=== PATIENT | male | born 1960 | race Caucasian/White ===

== ENCOUNTER 2016-10-13 21:12 | Emergency (ER) | payer OTHER ==
--- NOTE | ~2016-10-13 | HP ---
History And Physical [address] [address] [place]. [address] NAME: GUERITA ZAPATA : 62 STATUS : [facility]#: [id number] AGE: 55 ADM/REG DATE : 10/13/16 MR#: [id number] REPORT SERV DATE: 10/14/16 DICTATED BY: JOHN SEGUNDO DATE: 10/14/16 REPORT STATUS : Draft TRANSCRIBED BY: DEDE DATE: 10/14/16 DATE OF ADMISSION: 10/13/2016 CHIEF COMPLAINT: A 55-year-old male, presenting with near syncope, heavy diaphoresis, and nausea. HISTORY OF PRESENTING ILLNESS: The patient's history was obtained through careful interview with the patient, coupled with review of [facility] and [facility] medical records. The patient was in usual state of health when he had a very stressful [employer] meeting. He is the community mental health associate for [employer] and apparently has been undergoing some legal stressful issues in meeting with families. Suddenly while he was in the midst of this feeling quite strained, he states "the whole room went blurry." His symptoms included near syncope, lightheadedness, and diaphoresis that was drenching. He had to lay down on a couch to prevent himself from passing out. He developed nausea and one episode of vomiting. He tried to take a nitroglycerin, but vomited it back up. He describes only a "tad bit" of chest discomfort, aching quality, 2/10 severity associated with nausea that quickly subsided. He admits that prior to this episode today, he had a poor appetite, but otherwise had no significant symptoms. In the midst of these symptoms and feeling lightheaded, he did develop slight slurring of his speech and was incoherent for a bit. The patient has coronary artery disease and two stents placed in 2014. Afterwards, he lost about 75 pounds both intentionally by modifying his diet as well as unintentionally just from feeling ill, but his weight has stabilized in the last about six to eight months. REVIEW OF SYSTEMS: Otherwise, a 14-point review of systems was obtained and was negative. PAST MEDICAL HISTORY: 1. Coronary artery disease, status post stent placement x2 in 2014, followed by Dr. Avelar with a negative echocardiogram at that time. 2. Obstructive sleep apnea, on CPAP. 3. Elevated cholesterol. 4. Multiple episodes of syncope in 2015 after his myocardial infarction. PAST SURGICAL HISTORY: 1. Knee surgery. 2. Left arm surgery. ALLERGIES: SUCCINYLCHOLINE. History And Physical [address] [place]. [address] NAME: GUERITA ZAPATA : 62 STATUS : [facility] PAT#: [id number] AGE: 55 ADM/REG DATE : 10/13/16 MR#: [id number] REPORT SERV DATE: 10/14/16 DICTATED BY: JOHN SEGUNDO DATE: 10/14/16 REPORT STATUS : Draft TRANSCRIBED BY: DEDE DATE: 10/14/16 SOCIAL HISTORY: No tobacco abuse. Quit alcohol. Lives in [place], [place]. Is . Son is an [place] Machine [employer]ist. He works for [employer]. FAMILY HISTORY: He is an only child. Both of his parents of "old age." He cannot identify any particular family pattern of disease. CURRENT MEDICATIONS: Include aspirin 81 mg daily p.o. daily, Lipitor 40 mg p.o. daily, lisinopril 5 mg p.o. daily, nitroglycerin p.r.n., Brilinta 60 mg p.o. b.i.d. PHYSICAL EXAMINATION: VITAL SIGNS: Temperature 98.2, pulse 50, blood pressure 122/71, respiratory rate 16, O2 saturation 100% on room air. GENERAL: A pleasant, cooperative male, in no evidence of acute distress. HEENT: Pupils equal, round, and reactive to light. No conjunctival pallor. No scleral icterus. Nares are patent. Oropharynx is clear of obstruction. Moist mucous membranes. NECK: Trachea midline. No thyromegaly. LYMPH: No cervical lymphadenopathy. No supraclavicular lymphadenopathy. RESPIRATORY: Clear to auscultation at bases. No wheezes, rales, or rhonchi. Normal respiratory effort. CARDIOVASCULAR: Bradycardic, regular rhythm. No murmurs, rubs, or gallops. No current extremity edema is appreciated. ABDOMEN: Soft, nontender, nondistended. Normal bowel sounds auscultated throughout. No hepatosplenomegaly. DERMATOLOGICAL: Warm and dry extremities. No pallor, no cyanosis. PSYCHIATRIC: Normal affect. Good mood. Alert and oriented x3. LABORATORY DATA: White blood cell count 10.9, hemoglobin 14, hematocrit 40, platelets 215. Sodium 141, potassium 3.2, chloride 108, bicarb 22, BUN 13, creatinine 0.9. Glucose 117. INR 1.0. Troponin negative. STUDIES: 1. Chest x-ray by my own evaluation shows no acute cardiopulmonary process. 2. EKG by my own evaluation shows sinus bradycardia, inferior Q-waves. ASSESSMENT AND PLAN: 1. Near syncope. History sounds like a cardiac event such as an arrhythmia. We will check orthostatics. Check echocardiogram. Obtain a Cardiology consult. 2. Bradycardia, but no medications that are to blame or suspicious for causing this. Cardiology is aware of the case. It was reviewed by Dr. Menon in the emergency department. We will consult Dr. Avelar. Question whether the patient should empirically have a pacemaker? 3. Hypokalemia. Replace potassium. Check magnesium. 4. Coronary artery disease, history of stents x2. Follow troponin. Continue aspirin and Brilinta. History And Physical [address] [address] NAME: GUERITA ZAPATA : 62 STATUS : [facility] PAT#: [id number] AGE: 55 ADM/REG DATE : 10/13/16 MR#: [id number] REPORT SERV DATE: 10/14/16 DICTATED BY: JOHN SEGUNDO DATE: 10/14/16 REPORT STATUS : Draft TRANSCRIBED BY: DEDE DATE: 10/14/16 KPMitchell/DEDE John Segundo M.D. / [id number] CC: Piero Sims Jr., M.D. David Sapp, M.D.
[2016-10-13 20:13] LABS: BASOPHILS 0.4 %; BASOPHILS ABSOLUTE 0.04 10/3/uL (0.0-0.16); EOSINOPHILS 3.4 %; EOSINOPHILS ABSOLUTE 0.37 10/3/uL (0.0-0.53); HEMATOCRIT 40.1 % (40.0-51.0); HEMOGLOBIN 14.1 g/dL (13.6-17.8); IMMATURE GRANULOCYTES 0.4 %; IMMATURE GRANULOCYTES ABSOLUTE 0.04 10/3/uL (0.0-0.11); LYMPHOCYTES 23.9 %; LYMPHOCYTES ABSOLUTE 2.61 10/3/uL (0.67-4.30); MEAN CORPUS HGB CONC 35.2 g/dL (32.0-36.0); MEAN CORPUSCULAR HEMOGLOB 31.3 pg (26.0-34.0); MEAN PLATELET VOLUME 9.9 fL (9.2-13.0); MONOCYTES 8.1 %; MONOCYTES ABSOLUTE 0.89 10/3/uL (0.21-1.20); NEUTROPHILS 63.8 %; NEUTROPHILS ABSOLUTE 6.98 10/3/uL (2.02-8.40); PLATELET COUNT 215 10/3/uL (150-400); RBC DISTRIBUTION WIDTH 13.3 % (12.0-16.0); WHITE BLOOD CELLS 10.9 10/3/uL (4.5-10.5)
[2016-10-13 20:14] LABS: MANUAL DIFF NO %; MEAN CORPUSCULAR VOLUME 89.1 fL (80-100)
[2016-10-13 20:20] LABS: PARTIAL THROMBO TIME 24.1 SEC (22.5-37.2); PROTIME (NOT ORD) 13.1 SEC (12.0-14.5)
[2016-10-13 20:28] LABS: BUN (BLOOD UREA NITROGEN) 13 MG/DL (6-23); CALCIUM, SERUM 8.8 MG/DL (8.5-10.4); CHEST PAIN PROFILE TAT 0 Hrs 19 Mins; CHLORIDE, SERUM 108 MMOL/L (96-112); CO2 (CARBON DIOXIDE) 22 MMOL/L (24-34); GFR AFRICAN AMERICAN 112 ML/MIN (>=60); GFR NON AFRICAN AMERICAN 96 ML/MIN (>=60); POTASSIUM, SERUM 3.2 MMOL/L (3.5-5.3); SODIUM, SERUM 141 MMOL/L (135-148); TROPONIN I <0.02 NG/ML (<0.05)
[2016-10-13 20:30] LABS: GLUCOSE, SERUM 117 MG/DL (60-99)
[~2016-10-13 21:12] MED LIST: ASAB PO; BRILINTA90 MG PO; COREG3 PO; LIPITOR40 PO; NITROSTAT0.4 MG; PRIN5 PO
[2016-10-13] MEDS ORDERED: BRILINTA 90 MG PO (22:12)
[2016-10-13] MEDS ORDERED: PRIN5 PO (22:12)
[2016-10-13] MEDS ORDERED: LIPITOR40 PO (22:13)
[2016-10-13] MEDS ORDERED: HALF81 PO (22:14)
[2016-10-13] MEDS ORDERED: NITROSTAT0.4 MG SL (22:14)
== END 2016-10-14 01:30 | disposition left against medical advice (07) ==
LOC: ER 21:12
PROVIDERS: Emergency Medicine
DX: R53.1 Weakness (principal); R00.1 Bradycardia, unspecified; I25.2 Old myocardial infarction; Z95.5 Presence of coronary angioplasty implant and graft; Z88.8 Allergy status to other drugs, medicaments and biological substances; Z79.899 Other long term (current) drug therapy; Z79.82 Long term (current) use of aspirin
CPT/HCPCS: 71010; 80048; 81001; 83735; 84484; 85025; 85610; 85730; 93005; 96374; 96375; 99285; A9270-GY; J2550